=== PATIENT | female | born 1980 | race Caucasian/White ===

== ENCOUNTER 2016-11-09 22:42 | Emergency (ER) | payer SELFPAY ==
[~2016-11-09 22:42] MED LIST: ANAPROX DS550 M1 PO; CYCLOBENZAPRINE10 M1 PO; CYCLOBENZAPRINE5 M1 PO; DEXAMETHASONE2 M1 PO; FLEXERIL 10MG PO; FLEXERIL10 MG PO; HYDROCODON-ACE1 EA17 PO; IBUPROFEN800 M1 PO; IBUPROFEN800 MG PO; MOBIC15 M1 PO; MOTRIN800 MG PO; NO HOME MEDICATION XX; NORCO 10-325 T1 EACH PO; NORCO 5-325 TA1 EACH PO; NORCO 5/325 TAB1 TAB PO; PERCOCET 5/3251 TAB PO; PRENATAL1 EACH PO; PROZAC10 MG; PROZAC20 MG PO; PROZAC40 MG PO; ROBAXIN-750750 M1 PO; TRAMADOL HCL50 M2 PO; TRAMADOL HCL50 MG PO; TYLENOL #31 TA1 PO; TYLENOL325 MG PO; ULTRAM50 MG PO; VICODIN 5/500 T1 TAB PO
[2016-11-10] MEDS ORDERED: NORCO 5-325 TA1 EACH PO (01:36)
[2016-11-10] MEDS ORDERED: CYCLOBENZAPRINE5 M1 PO (01:36)
== END 2016-11-10 01:37 ==
LOC: EDMED 22:42
DX: S16.1XXA Strain of muscle, fascia and tendon at neck level, initial encounter (principal); Z90.89 Acquired absence of other organs; Z98.890 Other specified postprocedural states; X58.XXXA Exposure to other specified factors, initial encounter

== ENCOUNTER 2017-01-25 16:33 | Emergency (ER) | payer SELFPAY ==
[2017-01-25] MEDS ORDERED: MOBIC7.5 M2 PO (18:12)
[2017-01-25] MEDS ORDERED: CYCLOBENZAPRINE10 M1 PO (18:12)
== END 2017-01-25 18:17 ==
LOC: EDMED 16:33
DX: R20.2 Paresthesia of skin (principal); F32.9 Major depressive disorder, single episode, unspecified; Z79.899 Other long term (current) drug therapy